=== PATIENT | female | born 1990 | race American Indian/Alaskan Native ===

== ENCOUNTER 2019-10-21 07:35 | Day surgery (SDC) | payer MEDICAID ==
[~2019-10-21 07:35] MED LIST: SODIUM CHLORIDE 0.9% 1000 ML 1,000 ML IV SCH
--- NOTE | 2019-10-21 09:12 | Anesthesia Day of Surgery ---
Anesthesia Day of Surgery - Day of Surgery Patient Examined: Yes Patient H&P Reviewed: Yes Patient is NPO: Yes
--- NOTE | 2019-10-21 09:13 | Anesthesia Consultation ---
Anesthesia Consult and Med Hx Date of service: 10/21/19 - Airway Anesthetic Teeth Evaluation: Good, Crowns ROM Head & Neck: Adequate Mental/Hyoid Distance: Adequate Mallampati Class: Class II Intubation Access Assessment: Good - Pre-Operative Health Status ASA Pre-Surgery Classification: ASA2 Proposed Anesthetic Plan: MAC - Central Nervous System Hx Neuromuscular Disorder: Yes (Migraines-heavy NSAID use) - Gastrointestinal Hx Ulcer: Yes
[2019-10-21] MEDS ORDERED: propofoL 200 MG/20 ML VIAL IV ONE ×3 (09:38→10:27)
[2019-10-21] MEDS ORDERED: ONDANSETRON 4 MG/2 ML INJ ONE (10:19)
--- NOTE | 2019-10-21 10:20 | Procedure Note ---
Date of procedure: 10/21/19 Pre-op diagnosis: Abdominal Pain (Epigastric and Lower Abdominal)/ H/O NSAID use for Migraine Post-op diagnosis: other (Mild to Moderate Erosive Esophagitis/ Gastritis/R/O Celiac Disease/ No Peptic Ulcer disease noted/R/O Ileitis/ R/O Microscopic Colitis) Procedure: EGD with Biopsy/ Colonoscopy with biopsy [place] [facility] [place]: BRANDO BOTELLO Estimated blood loss: minimal Pathology: list Specimen disposition: to lab Condition: stable Disposition: same day (Treat with PPI and prn Bentyl and OTC Probiotic ; avoid aspirin and NSAID for 5 days otherwise resume home medication. Advice patient about a low FODMAP diet and follow up in 1 to 2 weeks ([phone]).)
--- NOTE | 2019-10-21 10:24 | Operative Report ---
PROCEDURE: Esophagogastroduodenoscopy with biopsy. INDICATIONS: This is a 29-year-old -Serbian female who has been taking NSAIDs, has a history of migraine, lately has been complaining of some epigastric pain and discomfort. EGD was done to assess for any associated peptic ulcer disease or significant upper GI pathology. DESCRIPTION OF PROCEDURE: The procedure was done after getting informed consent with MAC anesthesia. Instrument was passed through the hypopharynx into the esophagus, which showed mild to moderate distal erosive esophagitis. No peptic ulcer disease was noted within the gastric or the duodenal lumen. The stomach did show some antral gastritis. Biopsy was done from the gastric antrum, gastric body and angular incisura to rule out for H. pylori and atrophic gastritis. The pylorus was patent. The duodenum in the first and the second portion appeared normal. Biopsy was done from the second part of the duodenum to rule out for possible celiac disease. There was minimum bleeding associated with the procedure. No complications associated with the procedure. ASSESSMENT: Abdominal pain, mild to moderate erosive esophagitis, gastritis, no peptic ulcer disease noted, history of NSAID use. PLAN: To do a colonoscopy to assess for any associated colitis. Treat the patient with PPI, have the patient avoid aspirin and aspirin-related products for the next few days. Also, to treat the patient with a p.r.n. dose of Bentyl, encourage the patient to take probiotics and follow up in the office in 1-2 weeks' time. The procedure was done in the GI lab with assistance of the GI lab team, which included GONSALO, Azeb Nixon; Gumaro mcwilliams and with assistance of anesthesia. JOB# [id number] DEMETRA/JULIA
--- NOTE | 2019-10-21 10:41 | Operative Report ---
PROCEDURE: Colonoscopy. INDICATIONS: This is a 29-year-old -[place] female, who has a history of migraine, history of taking NSAID occasionally on a regular basis. Has been having abdominal pain and discomfort. EGD was done because of epigastric pain, which showed [id number] erosive esophagitis and gastritis, but no peptic ulcer disease. Colonoscopy was done to make sure there was not any significant lower GI pathology present, namely colitis, possibly brought on by the NSAID use. DESCRIPTION OF PROCEDURE: Initial rectal exam was unremarkable. Instrument was passed through the rectum onto the cecum, which was identified with the ileocecal valve and the appendiceal orifice. Visualization was fair to good. The terminal ileum was intubated, which showed normal mucosa with some lymphoid nodules, which is normal with presentation of the terminal ileum. Random biopsies were done from the terminal ileum to rule out for possible ileitis. Cecum, ascending colon, transverse colon, descending colon, and sigmoid likewise showed normal mucosa. Random biopsies were done to rule out for possible microscopic colitis and the rectum showed no internal hemorrhoid on the retroverted view. There was minimal bleeding associated with the procedure. No complications associated with the procedure. ASSESSMENT: Abdominal pain, rule out microscopic colitis, rule out ileitis. No colon polyps or diverticular disease was noted. No gross evidence of ileitis or colitis was also seen. There was minimal bleeding associated with the procedure. No complications associated with the procedure. Procedure was done in the GI lab with the assistance of the GI lab team, which included GONSALO, Azeb Nixon, as well as Rm mcwilliams and with the assistance of anesthesia. PLAN: Treat the patient with p.r.n. dose of Bentyl, PPI because of the EGD findings of esophagitis, gastritis and have the patient follow up in the office in 1-2 weeks' time. The patient will also be encouraged to take probiotics and avoid aspirin and aspirin-related products for the next few days. [facility]# [id number] DEMETRA/JULIA
--- NOTE | 2019-10-21 11:03 | Post Anesthesia Evaluation ---
- Post Anesthesia Evaluation Patient Participated: Yes Airway Patent: Yes Stable Respiratory Function: Yes Nausea/Vomiting: No Temp > 96.8F: Yes Pain Manageable: Yes Adequeate Hydration: Yes Anesthesia Complications: No Block Receding Appropriately: Not Applicable Patient on Ventilator: No
[2019-10-21 11:24] VITALS: BP 112/57
== END 2019-10-21 07:36 | disposition home or self-care (01) ==
LOC: GIO 07:35
DX: R10.9 Unspecified abdominal pain (principal); R14.0 Abdominal distension (gaseous); R10.13 Epigastric pain; K31.89 Other diseases of stomach and duodenum; K63.89 Other specified diseases of intestine; K29.70 Gastritis, unspecified, without bleeding; K27.9 Peptic ulcer, site unspecified, unspecified as acute or chronic, without hemorrhage or perforation; G43.909 Migraine, unspecified, not intractable, without status migrainosus; K20.9 Esophagitis, unspecified; Z88.5 Allergy status to narcotic agent; Z79.899 Other long term (current) drug therapy
CPT/HCPCS: 43239; 45380; 81025; 88305; 88342; J2405; J2704; J7030

== ENCOUNTER 2021-04-05 08:59 | Day surgery (SDC) | payer MEDICAID ==
--- NOTE | 2021-04-05 09:22 | Anesthesia Day of Surgery ---
Anesthesia Day of Surgery - Day of Surgery Patient Examined: Yes Patient H&P Reviewed: Yes Patient is NPO: Yes
--- NOTE | 2021-04-05 09:23 | Anesthesia Consultation ---
Anesthesia Consult and Med Hx Date of service: 04/05/21 - Airway Anesthetic Teeth Evaluation: Good ROM Head & Neck: Adequate Mental/Hyoid Distance: Adequate Mallampati Class: Class I Intubation Access Assessment: Good - Pulmonary Exam CTA: Yes - Cardiac Exam Cardiac Exam: RRR (IBS) - Pre-Operative Health Status ASA Pre-Surgery Classification: ASA2 Proposed Anesthetic Plan: MAC - Pulmonary Hx Smoking: No - Cardiovascular System Hx Hypertension: No - Central Nervous System Hx Neuromuscular Disorder: Yes (Migraines-heavy NSAID use) - Gastrointestinal Hx Ulcer: Yes
[2021-04-05] MEDS ORDERED: LIDOCAINE MPF (2%) 20 MG/1 ML VIAL 5 ML ONE (09:25)
[2021-04-05] MEDS ORDERED: propofoL 200 MG/20 ML VIAL IV ONE ×3 (09:25→10:05)
--- NOTE | 2021-04-05 10:19 | Procedure Note ---
Date of procedure: 04/05/21 Pre-op diagnosis: Abdominal Pain/ R/O Peptic Ulcer Diseas and Colitis Post-op diagnosis: other (No Peptic Ulcer Disease noted/ Mild to Moderate Erosive Esophagitis/Gastritis/ R/O Celiac disease/ R/O Eosinophilic Esophagitis/ Recto=Sigmoid Polyp (removed by snare excision)/ R/O Microscopic colitis/ R/O Ileitis/ No Internal Hemorrhoids noted) Anesthesia: MAC (04/05/2021) Surgeon: BRANDO BOTELLO Estimated blood loss: minimal Pathology: list Specimen disposition: to lab Condition: stable Disposition: same day (Avoid aspirin and NSAID for 5 days; otherwise resume previous medication of PPI,prn Bentyl and OTC Probiotic. F/U in 1 to 2 weeks ([phone]).)
--- NOTE | 2021-04-05 10:22 | Operative Report ---
DATE OF SURGERY: 04/05/2021 PROCEDURE PERFORMED: EGD with biopsy. INDICATIONS: This is a 30-year-old -Sy[place] female complaining of abdominal pain, mainly in the upper and the lower abdomen. EGD was done to make sure there was not any significant upper GI pathology present and also to rule out for any possible peptic ulcer disease. DESCRIPTION OF PROCEDURE: Procedure was done after getting informed consent with MAC anesthesia. The instrument was passed through the hypopharynx into the esophagus, which showed mild to moderate erosive esophagitis. Biopsy was done from the distal esophagus to assess for the severity of the esophagitis and from the mid esophagus to rule out for any eosinophilic esophagitis. The stomach showed antral gastritis. No ulcers were noted in the straight or the retroverted view. The pylorus was patent. Duodenum in the first and second portion appeared normal. There was no peptic ulcer disease noted either in the duodenal or gastric lumen. Biopsy was done from the second part of the duodenum to rule out for celiac disease. Additional biopsy was done from the gastric antrum, gastric body and angular incisura to rule out for H. pylori and atrophic gastritis. There was minimal bleeding associated with the procedure. ASSESSMENT: Abdominal pain, no peptic ulcer disease noted, [id number] erosive esophagitis, gastritis, rule out celiac disease, rule out eosinophilic esophagitis. PLAN: To treat the patient with PPI p.r.n. dose of Bentyl. Advised the patient to take probiotics and avoid aspirin and aspirin-related products for the next few days. A colonoscopy will also be done for further assessment. Procedure was done in the GI lab with assistance of the GI lab team, which included the GI nurse, the master technician and with assistance of anesthesia. TID: [id number] RECEIPT: [id number] DEMETRA/ARUN
--- NOTE | 2021-04-05 11:04 | Operative Report ---
DATE OF SURGERY: 04/05/2021 PROCEDURES: Colonoscopy with hot snare polypectomy and cold biopsy done. INDICATIONS: The patient is a 30-year-old -[place] female with abdominal pain and changes in bowel habit. EGD did not show any peptic ulcer disease, but did show [id number] erosive esophagitis, gastritis. Biopsies were also done to rule out for possible celiac disease and eosinophilic esophagitis. Colonoscopy was done to make sure there was not any significant lower GI pathology present. Initial rectal examination was unremarkable. DESCRIPTION OF PROCEDURE: Instrument was passed through the rectum onto the cecum, which was identified with ileocecal valve and appendiceal orifice. Visualization was fair to good. The terminal ileum was intubated, showed normal mucosa. Biopsy was done to rule out for possible ileitis. Cecum, ascending colon, transverse colon, descending colon, and most of the sigmoid showed normal mucosa. Random biopsies were done to rule out for possible microscopic colitis. In the rectosigmoid area, there was a 10-11 mm sessile polyp noted. This was removed by hot snare polypectomy and retrieved with minimal bleeding, and the rectum did not show any internal hemorrhoid on the retroverted view. ASSESSMENT: Abdominal pain, rule out microscopic colitis, rule out ileitis, solitary rectosigmoid polyp removed by hot snare polypectomy. We will await for the biopsy results. No internal hemorrhoids noted. PLAN: The patient will be asked to avoid aspirin and aspirin-related products for the next few days, treated with PPI because of the EGD findings of esophagitis and gastritis as well as Bentyl on a p.r.n. basis for abdominal pain and I also encouraged to take probiotics. The patient will be asked to follow up in the office in 1-2 weeks' time. Procedure was done in the GI lab with assistance of the GI lab team, which included the GI nurse, the data technician and with assistance of Anesthesia. TID: [id number] RECEIPT: [id number] DEMETRA/MAJOR
--- NOTE | 2021-04-05 11:24 | Post Anesthesia Evaluation ---
- Post Anesthesia Evaluation Patient Participated: Yes Airway Patent: Yes Stable Respiratory Function: Yes Nausea/Vomiting: No Temp > 96.8F: Yes Pain Manageable: Yes Adequeate Hydration: Yes Anesthesia Complications: No
[2021-04-05 16:57] VITALS: BP 110/75
== END 2021-04-05 10:50 | disposition home or self-care (01) ==
LOC: GIO 08:59
DX: R19.4 Change in bowel habit (principal); R10.9 Unspecified abdominal pain; K29.70 Gastritis, unspecified, without bleeding; K63.5 Polyp of colon; K63.89 Other specified diseases of intestine; K20.90 Esophagitis, unspecified without bleeding; G43.909 Migraine, unspecified, not intractable, without status migrainosus; Z20.822 Contact with and (suspected) exposure to COVID-19; Z88.5 Allergy status to narcotic agent; Z79.899 Other long term (current) drug therapy; Z88.8 Allergy status to other drugs, medicaments and biological substances
CPT/HCPCS: 43239; 45380; 45385; 88305; 88341; 88342; J2704; J3490; J7030; U0003; J7120; Q0162

== ENCOUNTER 2021-10-04 09:27 | Day surgery (SDC) | payer MEDICAID ==
--- NOTE | 2021-10-04 11:11 | Anesthesia Consultation ---
Anesthesia Consult and Med Hx Date of service: 10/04/21 - Airway Anesthetic Teeth Evaluation: Good ROM Head & Neck: Adequate Mental/Hyoid Distance: Adequate Mallampati Class: Class II Intubation Access Assessment: Probably Good - Pre-Operative Health Status ASA Pre-Surgery Classification: ASA1 Proposed Anesthetic Plan: MAC - Pulmonary Hx Smoking: No Hx Respiratory Symptoms: No - Cardiovascular System Hx Hypertension: No - Central Nervous System CVA: No - Endocrine Hx Renal Disease: No Hx Liver Disease: No Hx Insulin Dependent Diabetes: No Hx Non-Insulin Dependent Diabetes: No Hx Thyroid Disease: No - Other Systems Hx Obesity: Yes (BMI 31) - Additional Comments Anesthesia Medical History Comments: No hx anesthetic complications.
--- NOTE | 2021-10-04 11:12 | Anesthesia Day of Surgery ---
Anesthesia Day of Surgery - Day of Surgery Patient Examined: Yes Patient H&P Reviewed: Yes Patient is NPO: Yes
[2021-10-04] MEDS ORDERED: propofoL 200 MG/20 ML VIAL IV ONE ×2 (11:17→11:35)
[2021-10-04] MEDS ORDERED: LIDOCAINE MPF (2%) 20 MG/1 ML VIAL 5 ML ONE (11:17)
--- NOTE | 2021-10-04 11:58 | Procedure Note ---
Date of procedure: 10/04/21 Pre-op diagnosis: H/O Recto-Sigmoid Polyp (Carcinoid Polyp) Post-op diagnosis: other (No Colon Polyps noted/ Normal Colon Mucosa/ No Internal Hemorrhoids noted) Procedure: Colonoscopy Anesthesia: MAC Surgeon: BRANDO BOTELLO Estimated blood loss: none Pathology: list Specimen disposition: to lab Condition: stable Disposition: same day (Resume home medication and F/U in1 to 2 week ([phone]).)
[2021-10-04 13:13] VITALS: BP 105/71
--- NOTE | 2021-10-04 15:03 | Operative Report ---
DATE OF SURGERY: 10/04/2021 PROCEDURE: Colonoscopy. 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 Subsequent CT scan did not show any significant pathology. Repeat colonoscopy was being done to make sure that no other polyps were missed. DESCRIPTION OF PROCEDURE: Procedure was done after getting informed consent with MAC anesthesia. Initial rectal examination was unremarkable. The instrument was passed through the rectum onto the cecum, which was identified by the ileocecal valve and appendiceal orifice. Visualization was good. Cecum, ascending colon, transverse colon, descending colon and sigmoid showed normal mucosa. There appeared to be a polyp in the transverse colon, but on further evaluation it flattened out and possibly may have been a fold and the rectum did not show any internal hemorrhoids on the retroverted view. 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 Normal colon mucosa. No internal hemorrhoids. No biopsies done. No polypectomies done. The patient will be asked to resume previous medication. Follow up in the office in 1-2 weeks' time and may require another colonoscopy possibly in a year's time and otherwise resume home medication. Procedure was done in the GI lab with assistance of the GI lab team, which included the GI nurse, the warehouse technician and with assistance of Anesthesia. TID: [id number] RECEIPT: [id number] LEXY
== END 2021-10-04 13:00 | disposition home or self-care (01) ==
LOC: GIO 09:27
DX: Z08 Encounter for follow-up examination after completed treatment for malignant neoplasm (principal); E66.9 Obesity, unspecified; K29.70 Gastritis, unspecified, without bleeding; Z86.010 Personal history of colon polyps; G43.909 Migraine, unspecified, not intractable, without status migrainosus; Z68.31 Body mass index [BMI] 31.0-31.9, adult; Z80.3 Family history of malignant neoplasm of breast; Z80.8 Family history of malignant neoplasm of other organs or systems
CPT/HCPCS: 45378; J2704; J7030